=== PATIENT | female | born 1950 | race Caucasian/White ===

== ENCOUNTER → 2018-08-22 | Outpatient (CLI) | payer MEDICARE, BC ==
[2013-10-09 10:31] VITALS: BP 120/62
[~2018-08-22] MED LIST: AMIO200T4 PO; AMIO400T5 PO; ASPI-482 PO; RANI150C PO
--- NOTE | 2018-08-22 11:59 | RAD ---
Renal ultrasound, 08/22/2018: HISTORY: Hematuria The right kidney measures 10.8 cm in length while the left kidney measures 11.5 cm. There is no evidence of hydronephrosis. A 2 cm mass with an echogenic rim is noted in the upper pole of the left kidney. There appears to be internal color flow suggesting a solid lesion. No right renal mass is seen. Limited views of urinary bladder are unremarkable. IMPRESSION: Left renal mass. CT urography is suggested for further evaluation. Electronically signed by: Satnam Weir MD (08/22/2018 11:56 AM) [facility]
== END | disposition home or self-care (01) ==
LOC: US 07:23
PROVIDERS: ATTEND Family Medicine
DX: N28.89 Other specified disorders of kidney and ureter (principal)
CPT/HCPCS: 76770

== ENCOUNTER → 2018-08-27 | Outpatient (CLI) | payer MEDICARE, BC ==
[2013-10-09 10:31] VITALS: BP 120/62
[~2018-08-27] MED LIST changes: +CONTRAST GIVEN. MC PRN; +IOHEXOL 300 MG/ML 100ML VIAL. IV ONE
[2018-08-27 09:28] LABS: CREATININE 0.9 mg/dL (0.6-1.0); GFR 62.3
--- NOTE | 2018-08-27 13:06 | RAD ---
Examination: CT ABDOMEN PELVIS WO/W History: LEFT RENAL MASS ON ULTRASOUND EXAMINATION. UROGRAM OMNI 300 75ML Comparison/Correlation: 08/22/2018 ultrasound exam Findings: Axial images of the abdomen and pelvis were obtained without and with contrast according to urogram protocol. MIP images provided of the collecting systems. Pacemaker lead is present within the right atrial appendage and additional lesion is present within the right ventricle. Spleen, pancreas, and adrenal glands are normal. Left hepatic lobe lateral segment low-attenuation lesion inferiorly is present with peripheral nodular enhancement on portal venous phase imaging. Right collecting system is unremarkable. Right kidney is normal. At the left renal superior pole, there is a structure which has Hounsfield units of 43 on precontrast imaging but on the postcontrast imaging, there is noted to be Hounsfield units of 71 on the late nephrographic phase and 55 on the delayed excretory phase. This finding is smoothly marginated. It is relatively homogeneous in appearance. Splaying of the left renal superior pole calyces noted. No evidence of collecting system obstruction. Ureters are unremarkable. Urinary bladder is unremarkable. Gallbladder fossa is unremarkable. The bowel is unremarkable. No ascites or pelvic free fluid. Small umbilical hernia contains omental fat. Bony structures are unremarkable. Impression: Left renal superior pole enhancing lesion is present. Neoplastic etiology is not excluded. No aggressive features seen at this time. Hepatic lesion most compatible with a hemangioma is present. PQRS Compliance Statement: One or more of the following individualized dose reduction techniques were utilized for this examination: 1. Automated exposure control 2. Adjustment of the mA and/or kV according to patient size 3. Use of iterative reconstruction technique Electronically signed by: Shaan Jang MD (08/27/2018 1:03 PM) [facility]
== END | disposition home or self-care (01) ==
LOC: CT 08:38
PROVIDERS: ATTEND Family Medicine
DX: N28.89 Other specified disorders of kidney and ureter (principal); K42.9 Umbilical hernia without obstruction or gangrene
CPT/HCPCS: 36415; 74178; 82565; 84520; Q9967

== ENCOUNTER → 2018-09-08 | Day surgery (SDC) | payer MEDICARE, BC ==
[~2018-09-08] MED LIST changes: -CONTRAST GIVEN. MC PRN; -IOHEXOL 300 MG/ML 100ML VIAL. IV ONE; +IV NORMAL SALINE 1000ML BAG 1,000 ML IV SCH; +LIDOCAINE 1% PF 2 ML VIAL. ID PRN; +MIDAZOLAM HCL/PF 2 MG/2 ML VIAL. IV PRN; +PROPOFOL 40 ML IV ONE; +fentaNYL PF VIAL 100 MCG/2 ML VIAL IV PRN
--- NOTE | 2018-09-08 13:10 | PDOC1 ---
History and Physical Date of Admission Date of Admission DATE: 09/08/18 TIME: 13:05 Identification/Chief Complaint Chief Complaint Blood in stool. Source Source: Chart review, Patient History of Present Illness History of Present Illness 68 y/o female with recent rectal bleeding, painless. Last exam can document 2007 with hemorrhoids. Due for screening. No other complaints other than occasional heartburn. Past Medical History Cardiovascular: HTN, Other (mild cardiomyopathy) Heme/Onc: Cancer (ovarian, in remission) Renal/: Other (renal mass under investigation) Past Surgical History Past Surgical History: Pacemaker, Hysterectomy, Other ("eye surgery") Family History Family History: Cancer (breast/mother), Coronary Artery Disease, Hypertension, Stroke Current Medications Current Medications Current Medications Midazolam HCl (Versed) 2 mg PRN 1X PRN IV PRIOR TO PROCEDURE; Start 09/08/18 at 08:45; Stop 09/09/18 at 08:44 Fentanyl Citrate (Fentanyl 2ml Vial) 25 mcg PRN Q5MIN PRN IV X 2 DOSES FOR PAIN; Start 09/08/18 at 08:45; Stop 09/09/18 at 08:44 Fentanyl Citrate (Fentanyl 2ml Vial) 50 mcg PRN Q5MIN PRN IV X 2 DOSES FOR PAIN; Start 09/08/18 at 08:45; Stop 09/09/18 at 08:44 Sodium Chloride 1,000 ml @ 125 mls/hr Q8H IV Last administered on 09/08/18at 08:33; Start 09/08/18 at 08:33; Stop 09/08/18 at 20:32 Lidocaine HCl (Xylocaine-Mpf 1% 2ml Vial) 2 ml 1X PRN PRN ID IV START; Start 09/08/18 at 08:45; Stop 09/09/18 at 08:44 Propofol 40 ml @ As Directed STK-MED ONCE IV ; Start 09/08/18 at 13:00; Stop 09/08/18 at 13:01; Status DC Active Scripts Active Reported Ranitidine Hcl 150 Mg Capsule 150 Mg PO DAILY Aspir 81 (Aspirin) 81 Mg Tablet.dr 81 Mg PO DAILY Allergies Allergies: Coded Allergies: No Known Drug Allergies (Unverified , 09/08/18) ROS Review of System Otherwise negative. Physical Exam General: Alert, Oriented X3, Cooperative, No acute distress Lungs: Clear to auscultation, Normal air movement Heart: S1S2, RRR, no gallops, no murmurs, other (pacemaker) Abdomen: Normal bowel sounds, Soft, No tenderness, No hepatosplenomegaly, No masses Rectal Exam: deferred (to procedure) Extremities: No cyanosis, No edema Skin: No significant lesion Neuro: Normal speech, Strength at 5/5 X4 ext, Normal tone, Sensation intact, Cranial nerves 3-12 NL, Reflexes 2+ Psych/Mental Status: Mental status NL, Mood NL Vitals Vitals Vital Signs Date Time Temp Pulse Resp B/P (MAP) Pulse Ox O2 Delivery O2 Flow Rate FiO2 09/08/18 12:56 97.2 75 18 97 97.2 VTE Prophylaxis Ordered VTE Prophylaxis Devices: No VTE Pharmacological Prophylaxi: No Assessment/Plan Assessment/Plan IMP: Screen for CRC; incidental blood in stool. PLAN: colonoscopy. ANDREW WORRELL MD Sep 08, 2018 13:10
--- NOTE | 2018-09-08 13:35 | PDOC4 ---
PROCEDURE Procedure Colonoscopy/biopsies Indication: CRC screening (last 2007), blood in stool. Meds: per anesthesia Findings: TAMY--normal --'Scope advanced to cecum. Multiple telangectatic lesions in rectum, suggestin g prior radiation effect. Mucosa otherwise normal. Scattered diverticula, sigmoid. 5-6mm sessile polyp, hepatic flexure, biopsied off. --Small internal hemorrhoids on retroflex. Daphnie. well. IMP: Small polyp. Diverticulosis Post-radiation proctitis. Small hemorrhoids. REC: Await path. Resume home meds and diet. F/u in 2 weeks. Repeat exam in 5-7 years. Thanks. ANDREW WORRELL MD Sep 08, 2018 13:35
[2018-09-08 13:50] VITALS: BP 137/61
--- NOTE | 2018-09-09 16:06 | PATHOLOGY ---
[facility] Accession Number: [id number] . 01 Material submitted: . hepatic flexure - HEPATIC FLEXURE POLYP . 01 Clinical history: . Rectal bleeding . 02 Diagnosis: Colon biopsies, hepatic flexure polyp: - Tubular adenoma. . (JPM:[email or web address] 09/09/2018) QMS/09/09/2018 . 02 Comment: There is no high-grade dysplasia or evidence of malignancy. (JPM:kaitlynn; 09/09/2018) . 02 Electronically signed: . Ari Betts MD, Pathologist NPI- [id number] . 01 Gross description: . Received in formalin labeled "Allegre, Luz, hepatic flexure polyp," are 2 segments of [place] soft tissue measuring 0.7 x 0.2 x 0.2 cm in aggregate dimensions and ranging from 0.3 to 0.4 cm in maximum dimension. The specimen is submitted entirely in cassette A1. (TSD; 09/08/2018) TOB/TOB . 02 Pathologist provided ICD-10: D12.3 . 02 CPT . 018441 Specimen Comment: A courtesy copy of this report has been sent to Specimen Comment: [phone], . Specimen Comment: Report sent to / DR YATES Performed at: 01 [facility] [address], [place] [id number] MD Olman Rice MD Phone: [phone] Performed at: 02 [facility] [address], [place] [id number] MD Ari Betts MD Phone: [phone]
== END | disposition home or self-care (01) ==
LOC: ENDOS 12:23
PROVIDERS: ATTEND Internal Medicine Gastroenterology
DX: D12.3 Benign neoplasm of transverse colon (principal); K57.30 Diverticulosis of large intestine without perforation or abscess without bleeding; K64.0 First degree hemorrhoids; K62.89 Other specified diseases of anus and rectum; I10 Essential (primary) hypertension; K21.9 Gastro-esophageal reflux disease without esophagitis; I44.7 Left bundle-branch block, unspecified; I42.8 Other cardiomyopathies; Z85.43 Personal history of malignant neoplasm of ovary; Z90.710 Acquired absence of both cervix and uterus; Z95.0 Presence of cardiac pacemaker; Z82.49 Family history of ischemic heart disease and other diseases of the circulatory system; Z82.3 Family history of stroke; Z79.899 Other long term (current) drug therapy; Z80.3 Family history of malignant neoplasm of breast; Z72.89 Other problems related to lifestyle; Z79.82 Long term (current) use of aspirin; Z98.890 Other specified postprocedural states
CPT/HCPCS: 45380; 88305; J2704